=== PATIENT | male | born 1960 | race African-American/Black ===

== ENCOUNTER 2018-11-20 01:15 | Emergency (ER) | payer SELFPAY ==
[~2018-11-20] VITALS: Ht 162.6 cm; Wt 99.8 kg
--- NOTE | 2018-11-20 01:28 | ED.ADGEN ---
Past History Past Medical History: Bronchitis, CAD, COPD, Diabetes, Hypertension, Other Past Medical History PTSD, Sleep Apnea, Polysubstance abuse Smoking: Cigarettes Drug Use: Cocaine, Marijuana Adult General Chief Complaint Chief Complaint ".. I woke up ...because I could not breath...[facility] supposed to wear my Bi[facility] but I haven't been.. ".." Woke up.. my mouth was dry... ".. " I better now... I am not going to be admitted... because my Birthday is tomorrow... [place] would not take me.. because they had too many pt.'s... I get panic some times.. anxiety.. I have PTSD.. " HPI HPI Patient is a 57 year old male who presents with above hx and complaints of dyspnea. Patient states his dyspnea waking him from sleep tonight. Has known history of sleep apnea but does not wear his BiPAP regularly. Patient has history of coronary artery disease, hypertension, diabetes, PTSD, anxiety, elevated cholesterol. Patient does continue to smoke approximately a pack a day. Patient denies vaping. Pt. normally follows at [facility]. Review of Systems Review of Systems Constitutional: Denies fever or chills [] Eyes: Denies change in visual acuity, redness, or eye pain [] HENT: Denies nasal congestion or sore throat [] Respiratory: Complaints of shortness of breath [] Cardiovascular: No additional information not addressed in HPI [] GI: Denies abdominal pain, nausea, vomiting, bloody stools or diarrhea [] : Denies dysuria or hematuria [] Musculoskeletal: Denies back pain or joint pain [] Integument: Denies rash or skin lesions [] Neurologic: Denies headache, focal weakness or sensory changes [] Endocrine: Denies polyuria or polydipsia [] All other systems were reviewed and found to be within normal limits, except as documented in this note. Family History Family History Diabetes and hypertension Current Medications Current Medications Current Medications Medications (Trade) Dose Ordered Sig/Asael Start Time Stop Time Status Last Admin Dose Admin Albuterol/ Ipratropium (Duoneb) 3 ml STK-MED ONCE 11/20/18 02:29 11/20/18 02:29 DC Aspirin (Children'S Aspirin) 324 mg 1X ONCE 11/20/18 01:45 11/20/18 02:40 DC 11/20/18 01:58 324 MG Enoxaparin Sodium (Lovenox 100mg Syringe) 100 mg 1X ONCE 11/20/18 03:45 11/20/18 03:46 DC 11/20/18 03:49 100 MG Folic Acid (FOLIC ACID SYRINGE for ER) 5 mg STK-MED ONCE 11/20/18 03:04 11/20/18 03:04 DC Lactated Ringer's 1,000 ml @ 100 mls/hr Q10H 11/20/18 01:33 11/20/18 04:48 DC 11/20/18 01:58 100 MLS/HR Multivitamins/ Minerals (Infuvite Adult) 10 ml STK-MED ONCE 11/20/18 03:03 11/20/18 03:03 DC Multivitamins/ Minerals 10 ml/ Folic Acid 1 mg/ Thiamine HCl 100 mg/Lactated Ringer's 1,011.2 ml @ 1,011.2 mls/hr 1X ONCE 11/20/18 03:00 11/20/18 03:59 DC 11/20/18 03:23 1,011.2 MLS/HR Prednisone (Prednisone) 50 mg 1X ONCE 11/20/18 04:15 11/20/18 04:40 DC 11/20/18 04:29 50 MG Thiamine HCl (Thiamine Vial) 200 mg STK-MED ONCE 11/20/18 03:02 11/20/18 03:02 DC Allergies Allergies Allergies Coded Allergies Type Severity Reaction Last Updated Verified lisinopril Allergy Intermediate Swelling 11/20/18 Yes morphine Allergy Intermediate Hives 11/20/18 Yes Physical Exam Physical Exam Constitutional: Moderate distress, non-toxic appearance. [] HENT: Normocephalic, atraumatic, bilateral external ears normal, oropharynx moist, no oral exudates, nose normal. [] Eyes: PERRLA, EOMI, conjunctiva normal, no discharge. [] Neck: Normal range of motion, no tenderness, supple, no stridor. [] Cardiovascular:Heart rate regular rhythm, no murmur []PMI to the left Lungs & Thorax: Bilateral breath sounds equal at apex with scattered wheezes on auscultation [] Abdomen: Bowel sounds normal, soft, no tenderness, no masses, no pulsatile masses. [] Obese. Skin: Warm, dry, no erythema, no rash. [] Back: No tenderness, no CVA tenderness. [] Extremities: No tenderness, no cyanosis, no clubbing, ROM intact, ankle edema. [] Neurologic: Alert and oriented X 3, normal motor function, normal sensory function, no focal deficits noted. [] Psychologic: Affect anxious, judgement normal, mood normal. [] Current Patient Data Vital Signs Vital Signs Date Time Temp Pulse Resp B/P (MAP) Pulse Ox O2 Delivery O2 Flow Rate FiO2 11/20/18 04:35 82 18 150/82 (104) 95 Room Air 11/20/18 01:15 98.6 Lab Results Laboratory Tests Test 11/20/18 01:25 11/20/18 02:10 11/20/18 04:00 White Blood Count 7.2 x10^3/uL (4.0-11.0) Red Blood Count 5.29 x10^6/uL (4.30-5.70) Hemoglobin 14.5 g/dL (13.0-17.5) Hematocrit 42.9 % (39.0-53.0) Mean Corpuscular Volume 81 fL (79-100) Mean Corpuscular Hemoglobin 27 pg (25-35) Mean Corpuscular Hemoglobin Concent 34 g/dL (31-37) Red Cell Distribution Width 17.0 % (11.5-14.5) H Platelet Count 334 x10^3/uL (140-400) Neutrophils (%) (Auto) 62 % (31-73) Lymphocytes (%) (Auto) 22 % (24-48) L Monocytes (%) (Auto) 12 % (0-9) H Eosinophils (%) (Auto) 3 % (0-3) Basophils (%) (Auto) 1 % (0-3) Neutrophils # (Auto) 4.5 x10^3uL (1.8-7.7) Lymphocytes # (Auto) 1.6 x10^3/uL (1.0-4.8) Monocytes # (Auto) 0.8 x10^3/uL (0.0-1.1) Eosinophils # (Auto) 0.2 x10^3/uL (0.0-0.7) Basophils # (Auto) 0.1 x10^3/uL (0.0-0.2) Prothrombin Time 9.4 SEC (9.4-11.4) Prothrombin Time INR 0.9 (0.9-1.1) Activated Partial Thromboplast Time 24 SEC (23-33) D-Dimer (Florina) 0.51 mg/L (0.00-0.50) H Sodium Level 140 mmol/L (136-145) Potassium Level 3.8 mmol/L (3.5-5.1) Chloride Level 103 mmol/L (98-107) Carbon Dioxide Level 25 mmol/L (21-32) Anion Gap 12 (6-14) Blood Urea Nitrogen 21 mg/dL (8-26) Creatinine 1.7 mg/dL (0.7-1.3) H Estimated GFR (Cockcroft-Gault) 41.5 Glucose Level 133 mg/dL (70-99) H Calcium Level 8.8 mg/dL (8.5-10.1) Magnesium Level 2.2 mg/dL (1.8-2.4) Total Bilirubin 0.3 mg/dL (0.2-1.0) Direct Bilirubin 0.1 mg/dL (0.0-0.2) Aspartate Amino Transferase (AST) 22 U/L (15-37) Alanine Aminotransferase (ALT) 19 U/L (16-63) Alkaline Phosphatase 63 U/L (46-116) Creatine Kinase 350 U/L (39-308) H Creatine Kinase MB (Mass) 2.3 ng/mL (0.0-3.6) Creatine Kinase MB Relative Index 0.7 % (0-4) Troponin I Quantitative < 0.017 ng/mL (0-0.055) [id number]-[id number]-Type Natriuretic Peptide 88 pg/mL (0-124) Total Protein 7.2 g/dL (6.4-8.2) Albumin 3.5 g/dL (3.4-5.0) Lipase 180 U/L (73-393) Ethyl Alcohol Level < 10 mg/dL (0-10) Blood pH 7.33 (7.35-7.46) L Blood Gas PCO2 43 mmHg (35-46) Blood Gas PO2 78 mmHg (80-100) L Blood Gas HCO3 22 mmol/L (21-28) Arterial Bld O2 Saturation (Calc) 94 % (92-99) FiO2 21 % Urine Collection Type Unknown Urine Color Yellow Urine Clarity Clear Urine pH 5.0 Urine Specific [place] 1.015 Urine Protein Neg (NEG-TRACE) Urine Glucose (UA) 250 mg/dL (NEG) Urine Ketones (Stick) Neg mg/dL (NEG) Urine Blood Small (NEG) Urine Nitrite Neg (NEG) Urine Bilirubin Neg (NEG) Urine Urobilinogen Dipstick 0.2 mg/dL (0.2 mg/dL) Urine Leukocyte Esterase Neg (NEG) Urine RBC 0 /HPF (0-2) Urine WBC Occ /HPF (0-4) Urine Squamous Epithelial Cells Occ /LPF Urine Bacteria 0 /HPF (0-FEW) Urine Opiates Screen Neg (NEG) Urine Methadone Screen Neg (NEG) Urine Barbiturates Neg (NEG) Urine Phencyclidine Screen Neg (NEG) Urine Amphetamine/Methamphetamine Neg (NEG) Urine Benzodiazepines Screen Neg (NEG) Urine Cocaine Screen Pos (NEG) Urine Cannabinoids Screen Pos (NEG) Urine Ethyl Alcohol Neg (NEG) EKG EKG My interpretation EKG shows a sinus rhythm at 88 bpm. And mobile P waves in left. Prolonged QT interval at 400 ms. QTC is 488 ms. No findings acute STEMI of contralateral changes.[] Radiology/Procedures Radiology/Procedures She chest x-ray shows borderline cardiomegaly. Patchy areas of infiltrate and atelectasis. COPD type changes.[] Course & Med Decision Making Course & Med Decision Making Pertinent Labs and Imaging studies reviewed. (See chart for details) Patient requesting discharge. Patient refuses admission. Begged patient to reconsider his decision. Discharge. Patient take daily aspirin. Patient take his blood pressure meds as directed. Patient encouraged to stop smoking. Patient follow-up primary care. Patient uses BiPAP at night. Patient return if any concerns. [] Final Impression Final Impression 1. Dyspnea[] 2. Tobacco use 3. Anxiety disorder 4. PTSD 5. Sleep apnea 6. Elevated CK 350 7. Elevated Creat. 1.7 8. Mild elevation in d-dimer 9. Hx. Polysubstance Abuse ( + Marijuana and Cocaine tonight) Dragon Disclaimer Dragon Disclaimer This electronic medical record was generated, in whole or in part, using a voice recognition dictation system. Dragon Disclaimer This chart was dictated in whole or in part using Voice Recognition software in a busy, high-work load, and often noisy Emergency Department environment. It may contain unintended and wholly unrecognized errors or omissions. WESTON BARBOSA MD Nov 20, 2018 01:28
[2018-11-20] MEDS ORDERED: IV RINGERS SOLUTION,LACTATED 1,000 ML IV SCH (01:33)
[2018-11-20 01:44] LABS: BASO # 0.1 x10^3/uL (0.0-0.2); BASO % 1 % (0-3); EOS # 0.2 x10^3/uL (0.0-0.7); EOS % 3 % (0-3); HEMATOCRIT 42.9 % (39.0-53.0); HEMOGLOBIN 14.5 g/dL (13.0-17.5); LYMPH # 1.6 x10^3/uL (1.0-4.8); LYMPH % 22 % (24-48); MEAN CORPUSCULAR HEMOGLOBIN 27 pg (25-35); MEAN CORPUSCULAR HGB CONC 34 g/dL (31-37); MEAN CORPUSCULAR VOLUME 81 fL (79-100); MONO # 0.8 x10^3/uL (0.0-1.1); MONO % 12 % (0-9); NEUT # 4.5 x10^3uL (1.8-7.7); NEUT % 62 % (31-73); PLATELET COUNT 334 x10^3/uL (140-400); RED BLOOD COUNT 5.29 x10^6/uL (4.30-5.70); WHITE BLOOD COUNT 7.2 x10^3/uL (4.0-11.0)
[2018-11-20] MEDS ORDERED: ASPIRIN 81 MG TAB.CHEW PO ONE (01:45)
[2018-11-20 02:08] LABS: ALBUMIN 3.5 g/dL (3.4-5.0); CALCIUM 8.8 mg/dL (8.5-10.1); CREATININE 1.7 mg/dL (0.7-1.3); DIRECT BILIRUBIN 0.1 mg/dL (0.0-0.2); GFR 41.5; MAGNESIUM 2.2 mg/dL (1.8-2.4); POTASSIUM 3.8 mmol/L (3.5-5.1); TOTAL BILIRUBIN 0.3 mg/dL (0.2-1.0); TOTAL PROTEIN 7.2 g/dL (6.4-8.2)
[2018-11-20 02:22] LABS: BGAS PH 7.33 (7.35-7.46)
[2018-11-20] MEDS ORDERED: IPRATRPIUM/ALBUTEROL 0.5/2.5MG 3 ML NEBU. ONE (02:29)
[2018-11-20] MEDS ORDERED: MVI, ADULT NO.4 WITH VIT K 10 ML, FOLIC ACID SYRINGE for ER 1 MG, THIAMINE INJ 100 MG i... IV ONE ×4 (03:00)
[2018-11-20] MEDS ORDERED: THIAMINE 200 MG/2 ML VIAL. IV ONE (03:02)
[2018-11-20] MEDS ORDERED: MVI, ADULT NO.4 WITH VIT K 10 ML VIAL IV ONE (03:03)
[2018-11-20] MEDS ORDERED: FOLIC ACID 5 MG/ML SYRINGE for ER IV ONE (03:04)
[2018-11-20] MEDS ORDERED: ENOXAPARIN ** NOTE DOSE ** SYRINGE SQ ONE (03:45)
[2018-11-20] MEDS ORDERED: PRED50TA PO (04:10)
[2018-11-20] MEDS ORDERED: ALBU2.5V8 IH (04:10)
[2018-11-20] MEDS ORDERED: predniSONE 10 MG TABLET PO ONE (04:15)
[2018-11-20 04:21] LABS: CLARITY,URINE CLEAR; COLOR,URINE YELLOW
[2018-11-20 04:22] LABS: BACTERIA,URINE 0 /HPF (0-FEW); BARBITURATES NEG (NEG); BENZODIAZEPINES NEG (NEG); BILIRUBIN,URINE NEG (NEG); CANNABINOIDS POS (NEG); COCAINE POS (NEG); GLUCOSE,URINE 250 mg/dL (NEG); METHADONE NEG (NEG); NITRITE,URINE NEG (NEG); OPIATES NEG (NEG); PHENCYCLIDINE NEG (NEG); RBC,URINE 0 /HPF (0-2); SQUAMOUS EPITHELIAL CELL,UR OCC /LPF; UROBILINOGEN,URINE 0.2 mg/dL (0.2 mg/dL); WBC,URINE OCC /HPF (0-4)
[2018-11-20 04:23] LABS: AMPHETAMINE/METHAMPHETAMINE NEG (NEG)
[2018-11-20 04:35] VITALS: BP 150/82
--- NOTE | 2018-11-20 05:21 | RAD ---
CHEST PA LATERAL INDICATION: Rapid heart rate. COMPARISON STUDY: None. FINDINGS: Lungs: Normal lung volume. No pulmonary mass or consolidation. The tracheobronchial tree and hilar structures are normal. Pleura: No pleural effusion or pneumothorax. Heart and Mediastinum: The cardiomediastinal silhouette is normal. The great vessels of the thorax are normal. Bones and Soft Tissues: The bones and soft tissues are within normal limits. IMPRESSION: No acute cardiopulmonary process. Electronically signed by: Victor Hugo Martinez MD (11/20/2018 5:18 AM) [facility] [id number]
--- NOTE | 2018-11-20 13:48 | EKG ---
[address] [address] Test Date: 2018-11-20 Test Time: 01:25:32 Pat Name: BERE VILLAVICENCIO Department: Room: Gender: M Mechanical Facilities Technician: : [id number] Requested By: WESTON BARBOSA Order Number: [id number] Reading MD: Measurements Intervals [place] Rate: 88 P: 56 DC: 124 QRS: 21 QRSD: 72 T: 44 QT: 400 QTc: 488 Interpretive Statements SINUS RHYTHM LEFT ATRIAL ABNORMALITY PROLONGED QT ABNORMAL ECG RI6.01 No previous ECG available for comparison
== END 2018-11-20 04:35 | disposition home or self-care (01) ==
LOC: ER 01:15
DX: R06.00 Dyspnea, unspecified (principal); F41.9 Anxiety disorder, unspecified; F43.10 Post-traumatic stress disorder, unspecified; G47.30 Sleep apnea, unspecified; R97.0 Elevated carcinoembryonic antigen [CEA]; R79.1 Abnormal coagulation profile; F12.10 Cannabis abuse, uncomplicated; F14.10 Cocaine abuse, uncomplicated; R74.8 Abnormal levels of other serum enzymes; I25.10 Atherosclerotic heart disease of native coronary artery without angina pectoris; E11.9 Type 2 diabetes mellitus without complications; I10 Essential (primary) hypertension; F17.210 Nicotine dependence, cigarettes, uncomplicated; Z88.5 Allergy status to narcotic agent; Z88.8 Allergy status to other drugs, medicaments and biological substances
CPT/HCPCS: 36415; 36600; 71046; 80048; 80076; 80307; 81001; 82553; 82803; 83690; 83735; 83880; 84443; 84484; 85025; 85379; 85610; 85730; 93005; 94640; 96365; 96372; 99285; G0480; J1650; J7120; J7512